=== PATIENT | female | born 1945 | race Caucasian/White ===

== ENCOUNTER 2022-12-07 14:39 | Outpatient (CLI) | payer MEDICARE | END 2022-12-07 14:40 | disposition short-term general hospital (02) | LOC: EMS 14:39 | DX: R55 Syncope and collapse (principal); R11.2 Nausea with vomiting, unspecified; S00.81XA Abrasion of other part of head, initial encounter; W18.39XA Other fall on same level, initial encounter; Y93.K1 Activity, walking an animal; Y92.838 Other recreation area as the place of occurrence of the external cause | CPT/HCPCS: A0425; A0427 ==

== ENCOUNTER 2023-08-14 11:11 | Emergency (ER) | payer MEDICARE ==
--- NOTE | 2023-08-14 12:52 | ED Physician Documentation ---
PD HPI SKIN - Stated complaint Stated Complaint: RT ARM RASH/SORES - Chief complaint Chief Complaint: General - History obtained from History obtained from: Patient - History of Present Illness Timing - onset: How many days ago (onset of redness, swelling, and itching ar right upper arm 2 days ago. Had had whole body skin scrub 4 days ago but did not notice particular injury in that area. No other contact irritants or such in that area. Has some weeping yellow fluid and has blistered in that area.) Timing - duration: Days (2) Timing - details: Gradual onset, Still present (increasing rednes surrounding. No muscle pain with ROM and does not feel generally sick.) Location: RUE (upper arm laterally) Quality / character: Itchy, Painful, Discolored (red), Swelling. No: Vesicular (one large blister over the area has unroofed.) Review of Systems Constitutional: denies: Fever, Chills, Myalgias GI: denies: Nausea, Vomiting Neurologic: denies: Focal weakness, Numbness PD PAST MEDICAL HISTORY - Past Medical History Musculoskeletal: None Derm: None - Present Medications Home Medications: Ambulatory Orders Medication Instructions Recorded Confirmed Doxycycline Hyclate 100 mg PO BID 7 Days #14 cap 08/14/23 Mupirocin 2% Oint [Bactroban 2% 1 applic TOP TID #15 gm 08/14/23 Oint] - Allergies Allergies/Adverse Reactions: Allergies Allergy/AdvReac Type Severity Reaction Status Date / Time No Known Drug Allergies Allergy Verified 08/14/23 11:52 PD ED PE NORMAL - Vitals Vital signs reviewed: Yes - General General: Alert and oriented X 3, No acute distress, Well developed/nourished - Derm Derm: Normal color, Warm and dry, Other (right upper arm with redness and warmth over anterior aspect. There is a large 4x10 cm area of onroofed bulla with yellow weeping fluid mildly underneath (culture obtained). small 2 cm area of partial skin erosion upper aspect of that. No deep tenderness. ) Results - Vitals Vitals: Vital Signs - 24 hr 08/14/23 08/14/23 11:48 13:49 Temperature 36.7 C Heart Rate 70 78 Respiratory 16 15 Rate Blood Pressure 146/57 H 140/78 H O2 Saturation 95 99 Oxygen O2 Source Room air - Labs Labs: Microbiology 08/14/23 13:18 Wound Culture - Preliminary Arm - Right PD Medical Decision Making - ED course Complexity details: considered differential (skin infection c/w bullous impetigo. Presume some skin inury from skin scrub 4 days ago and onset infection 2 days ago. She does not appear ill, and there is not deep tenderness, so not c/w myositis nor nec fac. ), d/w patient Departure - Departure Disposition: 01 Home, Self Care Clinical Impression: Bullous staphylococcal impetigo Condition: Stable Record reviewed to determine appropriate education?: Yes Instructions: ED Staph Infec Abx Tx Only Follow-Up: LAURIE BALL MD [Primary Care Provider] - Prescriptions: Mupirocin 2% Oint [Bactroban 2% Oint] 1 applic TOP TID #15 gm Doxycycline Hyclate 100 mg PO BID 7 Days #14 cap Comments: This looks to be an infection of the skin layer with blistering. We did do a culture of the area that we will give results in a couple of days but at this point it looks most likely to be a superficial staph infection termed bullous impetigo. You can use Benadryl or cetirizine to help with some of the itching in the area but it may be just inflammatory and not histamine mediated. At this point it appears superficial without any deep tenderness or general systemic symptoms such as aches, fever, nausea. Clean the area with basic soap and water couple times a day and use mupirocin antibiotic ointment lightly to the area. Apply a nonstick dressing to it and keep it lightly covered with some gauze as well. Doxycycline antibiotic twice daily for a week. I would anticipate improvement in this over the next several days with regard to redness and swelling and drainage. The blistered area will need to heal over over time. Recheck if not improving well over the next several days and resolved by 4 to 5 days. Return if you have increasing general symptoms or any deeper pain suggesting a deeper layers involved. I sent a prescription to the [facility] pharmacy. Forms: PCP List Discharge Date/Time: 08/14/23 13:56
[2023-08-14] MEDS ORDERED: MUPIROCIN 2% OINT 1 GM TOP STA (13:23)
[2023-08-14] MEDS ORDERED: DOXYCYCLINE 100 MG TABLET PO STA (13:23)
[2023-08-14] MEDS: ACETAMINOPHEN 325 MG TABLET PO STA ×2 (13:31→13:51)
[2023-08-14 13:51] VITALS: BP 140/78; O2SAT 99
== END 2023-08-14 13:56 | disposition home or self-care (01) ==
LOC: ED 11:11
DX: L01.03 Bullous impetigo (principal); B95.8 Unspecified staphylococcus as the cause of diseases classified elsewhere
CPT/HCPCS: 87070; 87181; 87205; 99283; A9270